=== PATIENT | male | born 1955 | race Caucasian/White ===

== ENCOUNTER 2023-10-16 11:47 | Emergency (ER) | payer BC ==
[~2023-10-16] VITALS: Ht 170.2 cm; Wt 85.7 kg
[2023-10-16 11:48] VITALS: BP 157/84; TEMP 98.1; O2SAT 100
[2023-10-16] MEDS ORDERED: INFL100I IV (11:57)
[2023-10-16] MEDS ORDERED: AZAT50TA37 PO (11:57)
[2023-10-16] MEDS ORDERED: OFLO5DRO OP (11:57)
[2023-10-16] MEDS: FLUORESCEIN OPHTH 1MG STRIP OS STA (12:03)
[2023-10-16] MEDS: TETRACAINE 0.5% OPHTH SOLN 4ML OS STA (12:03)
== END 2023-10-16 13:17 | disposition home or self-care (01) ==
LOC: M ED 11:47
DX: H57.8A2 Foreign body sensation, left eye (principal); K51.90 Ulcerative colitis, unspecified, without complications